=== PATIENT | female | born 2000 | race Caucasian/White ===

== ENCOUNTER 2019-05-31 21:41 | Emergency (ER) | payer BC, OTHER ==
[2019-05-31] MEDS ORDERED: Cephalexin 500 MG Cap PO ONE (22:53)
--- NOTE | 2019-05-31 22:53 | EDM.PDOC ---
ED HPI GENERAL MEDICAL PROBLEM - General Chief Complaint: Genitourinary Problem Stated Complaint: BACTERIA INFETION Time Seen by Provider: 05/31/19 22:48 Source of Information: Reports: Patient History Limitations: Reports: No Limitations - History of Present Illness INITIAL COMMENTS - FREE TEXT/NARRATIVE: This is a 18-year-old female who presents the emergency room with a chief complaint of dysuria and hematuria. Patient states she also has urgency and urgency. Denies fever chills back pain. Onset: Today Duration: Day(s):, Getting Worse Quality: Reports: Burning Severity: Mild Associated Symptoms: Reports: No Other Symptoms Vaginal Pain Score (Numeric/FACES): 10 - Related Data Allergies Allergy/AdvReac Type Severity Reaction Status Date / Time No Known Allergies Allergy Verified 05/31/19 22:01 Home Meds: Home Meds Escitalopram Oxalate [Lexapro] 10 mg PO DAILY 05/31/19 [History] Past Medical History Cardiovascular History: Reports: None Respiratory History: Reports: None Gastrointestinal History: Reports: None Genitourinary History: Reports: None [employer] History: Reports: None Musculoskeletal History: Reports: None Neurological History: Reports: None Psychiatric History: Reports: Anxiety, Depression Endocrine/Metabolic History: Reports: None Hematologic History: Reports: None Immunologic History: Reports: None Oncologic (Cancer) History: Reports: None Dermatologic History: Reports: None - Infectious Disease History Infectious Disease History: Reports: None - Past Surgical History Head Surgeries/Procedures: Reports: None HEENT Surgical History: Reports: Oral Surgery Social & Family History - Tobacco Use Smoking Status *Q: Never Smoker - Recreational Drug Use Recreational Drug Use: No ED ROS GENERAL - Review of Systems Review Of Systems: Comprehensive ROS is negative, except as noted in HPI. Constitutional: Reports: No Symptoms HEENT: Reports: No Symptoms Respiratory: Reports: No Symptoms Cardiovascular: Reports: No Symptoms Endocrine: Reports: No Symptoms GI/Abdominal: Reports: No Symptoms : Reports: Frequency, Hematuria Musculoskeletal: Reports: No Symptoms Skin: Reports: No Symptoms Neurological: Reports: No Symptoms Psychiatric: Reports: No Symptoms Hematologic/Lymphatic: Reports: No Symptoms Immunologic: Reports: No Symptoms ED EXAM, RENAL/ - Physical Exam Exam: See Below Exam Limited By: No Limitations General Appearance: Alert, WD/WN, No Apparent Distress Eye Exam: Bilateral Eye: Normal Fundi, Normal Inspection, Papilledema, PERRL Ears: Normal External Exam, Normal Canal, Hearing Grossly Normal, Normal TMs Throat/Mouth: Normal Oropharynx Head: Atraumatic, Normocephalic Course - Vital Signs Last Recorded V/S: Last Vital Signs Temp 97.9 F 05/31/19 21:58 Pulse 87 05/31/19 21:58 Resp 16 05/31/19 21:58 BP 117/63 05/31/19 21:58 Pulse Ox 97 05/31/19 21:58 - Orders/Labs/Meds Orders: Active Orders 24 hr Category Date Time Status CULTURE URINE [RM] Stat Lab 05/31/19 21:53 Received Labs: Laboratory Tests 05/31/19 Range/Units 21:53 Urine Color YELLOW Urine Appearance CLEAR Urine pH 6.0 (5.0-8.0) Ur Specific Halls >= 1.030 (1.001-1.035) Urine Protein NEGATIVE (NEGATIVE) mg/dL Urine Glucose (UA) NEGATIVE (NEGATIVE) mg/dL Urine Ketones NEGATIVE (NEGATIVE) mg/dL Urine Occult Blood MODERATE H (NEGATIVE) Urine Nitrite NEGATIVE (NEGATIVE) Urine Bilirubin NEGATIVE (NEGATIVE) Urine Urobilinogen 0.2 (<2.0) EU/dL Ur Leukocyte Esterase TRACE H (NEGATIVE) Urine RBC 5-10 (0-2/HPF) Urine WBC 1-3 (0-5/HPF) Ur Epithelial Cells RARE (NONE-FEW) Urine Bacteria RARE (NEGATIVE) Departure - Departure Time of Disposition: 22:52 Disposition: Home, Self-Care 01 Condition: Good Clinical Impression: UTI, Urinary tract infectious disease - Discharge Information Referrals: PCP,None [Primary Care Provider] - Sepsis Event Note - Evaluation Sepsis Screening Result: No Definite Risk - Focused Exam Vital Signs: Vital Signs Temp Pulse Resp BP Pulse Ox 05/31/19 21:58 97.9 F 87 16 117/63 97 Date Exam was Performed: 05/31/19 Time Exam was Performed: 22:48 - My Orders Last 24 Hours: My Active Orders 05/31/19 21:53 CULTURE URINE [RM] Stat - Assessment/Plan Last 24 Hours: My Active Orders 05/31/19 21:53 CULTURE URINE [RM] Stat
[2019-05-31] MEDS ORDERED: Phenazopyridine 200 MG Tab PO ONE (22:54)
== END 2019-05-31 23:00 | disposition home or self-care (01) ==
LOC: MW.ED 21:41
DX: N39.0 Urinary tract infection, site not specified (principal); F41.9 Anxiety disorder, unspecified; F32.9 Major depressive disorder, single episode, unspecified; Z79.899 Other long term (current) drug therapy
CPT/HCPCS: 81001; 87086; 87088; 87186; 99283; A9270

== ENCOUNTER 2019-07-14 18:40 | Emergency (ER) | payer BC, OTHER ==
--- NOTE | 2019-07-14 20:29 | CR ---
Right elbow: AP, lateral and slight oblique view of the right elbow was obtained. Comparison: No previous right elbow study. Joint spaces are preserved. No joint effusion is seen. No fracture or other bony abnormality is appreciated. Impression: 1. No abnormality is appreciated on 3 view right elbow study. Diagnostic code #1 This report was dictated in Mountain Standard Time
--- NOTE | 2019-07-14 20:41 | EDM.PDOC ---
ED HPI GENERAL MEDICAL PROBLEM - General Chief Complaint: Upper Extremity Injury/Pain Stated Complaint: FELL ON ELBOW Time Seen by Provider: 07/14/19 19:30 Source of Information: Reports: Patient History Limitations: Reports: No Limitations - History of Present Illness INITIAL COMMENTS - FREE TEXT/NARRATIVE: HISTORY AND PHYSICAL: History of present illness: Patient is a 18-year-old female presents to the ED with complaint of right elbow injury. She states that just prior to arrival to the ED, patient fell on the ice while ice skating landing directly on her her right elbow. She denies head injury or proximal shoulder pain. Denies distal numbness or tingling. Review of systems: As per history of present illness and below otherwise all systems reviewed and negative. Past medical history: As per history of present illness and as reviewed below otherwise noncontributory. Surgical history: As per history of present illness and as reviewed below otherwise noncontributory. Social history: No reported history of drug or alcohol abuse. Family history: As per history of present illness and as reviewed below otherwise noncontributory. Physical exam: General: Patient sitting comfortably in no acute distress and nontoxic appearing HEENT: Atraumatic, normocephalic, pupils reactive, negative for conjunctival pallor or scleral icterus, mucous membranes moist, throat clear, neck supple, nontender, trachea midline. No meningeal signs. Lungs: Clear to auscultation, breath sounds equal bilaterally, chest nontender. Heart: S1S2, regular, negative for clicks, rubs, or overt murmur. Abdomen: Soft, nondistended, nontender. Negative for masses or hepatosplenomegaly. Negative for costovertebral tenderness. No rigidity, rebound , guarding. Pelvis: Stable nontender. Genitourinary: Deferred. Rectal: Deferred. Extremities: No obvious swelling or deformity. Skin is intact. Pain to palpation of posterior elbow. Atraumatic, negative for cords or calf pain. Neurovascular unremarkable. Neuro: Awake, alert, oriented. Cranial nerves II through XII unremarkable. Cerebellum unremarkable. Motor and sensory unremarkable throughout. Exam nonfocal. Notes: Diagnostics: x-ray right elbow Therapeutics: Sling Prescriptions: none Impression: Right elbow injury Plan: 1. Ice, elevate, and motrin or tylenol as needed 2. Follow up with orthopedics, please call the number provided to schedule an appointment 3. Return to ED as needed as discussed Definitive disposition and diagnosis as appropriate pending reevaluation and review of above. Right Elbow Pain Score (Numeric/FACES): 9 - Related Data Allergies Allergy/AdvReac Type Severity Reaction Status Date / Time oxycodone Allergy Rash Verified 07/14/19 19:16 Home Meds: Home Meds . 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 Musculoskeletal History: Reports: None Neurological History: Reports: None Psychiatric History: Reports: Anxiety, Depression Endocrine/Metabolic History: Reports: None Hematologic History: Reports: None Immunologic History: Reports: None Oncologic (Cancer) History: Reports: None Dermatologic History: Reports: None - Infectious Disease History Infectious Disease History: Reports: None - Past Surgical History Head Surgeries/Procedures: Reports: None HEENT Surgical History: Reports: Oral Surgery Social & Family History - Family History Family Medical History: Noncontributory - Tobacco Use Smoking Status *Q: Never Smoker - Recreational Drug Use Recreational Drug Use: No Review of Systems - Review of Systems Review Of Systems: Comprehensive ROS is negative, except as noted in HPI. ED EXAM, GENERAL - Physical Exam Exam: See Below (see dictation) Course - Vital Signs Last Recorded V/S: Last Vital Signs Temp 98.9 F 07/14/19 19:17 Pulse 84 07/14/19 19:17 Resp 18 07/14/19 19:17 BP 123/79 07/14/19 19:17 Pulse Ox 97 07/14/19 19:17 Departure - Departure Time of Disposition: 20:38 Disposition: Home, Self-Care 01 Condition: Good Clinical Impression: Injury of right elbow - Discharge Information Referrals: PCP,None [Primary Care Provider] - Additional Instructions: The following information is given to patients seen in the emergency department who are being discharged to home. This information is to outline your options for follow-up care. We provide all patients seen in our emergency department with a follow-up referral. The need for follow-up, as well as the timing and circumstances, are variable depending upon the specifics of your emergency department visit. If you don't have a primary care physician on staff, we will provide you with a referral. We always advise you to contact your personal physician following an emergency department visit to inform them of the circumstance of the visit and for follow-up with them and/or the need for any referrals to a consulting specialist. The emergency department will also refer you to a specialist when appropriate. This referral assures that you have the opportunity for follow-up care with a specialist. All of these measure are taken in an effort to provide you with optimal care, which includes your follow-up. Under all circumstances we always encourage you to contact your private physician who remains a resource for coordinating your care. When calling for follow-up care, please make the office aware that this follow-up is from your recent emergency room visit. If for any reason you are refused follow-up, please contact the [facility] Emergency Department at and asked to speak to the emergency department charge nurse. [facility] [address] [place] [id number] [address] [facility] [address] [place] [address], [address] [place] [address] 1. Ice, elevate, and motrin or tylenol as needed 2. Follow up with orthopedics, please call the number provided to schedule an appointment 3. Return to ED as needed as discussed Sepsis Event Note - Evaluation Sepsis Screening Result: No Definite Risk - Focused Exam Vital Signs: Vital Signs Temp Pulse Resp BP Pulse Ox 07/14/19 19:17 98.9 F 84 18 123/79 97 Date Exam was Performed: 07/14/19 Time Exam was Performed: 20:35
== END 2019-07-14 20:56 | disposition home or self-care (01) ==
LOC: MW.ED 18:40
DX: S59.901A Unspecified injury of right elbow, initial encounter (principal); V00.211A Fall from ice-skates, initial encounter; Y93.21 Activity, ice skating
CPT/HCPCS: 73080-26-RT; 73080-RT; 99283-25

== ENCOUNTER 2021-12-01 01:34 | Emergency (ER) | payer BC, OTHER ==
[2021-12-01] MEDS ORDERED: Sodium Chloride 0.9% 10 ML Syringe FLUSH PRN (02:32)
[2021-12-01] MEDS ORDERED: Sodium Chloride 0.9% 2.5 ML Syringe FLUSH PRN (02:32)
[2021-12-01] MEDS ORDERED: Ondansetron 4 MG/2 ML SDV IVPUSH ONE (02:33)
[2021-12-01] MEDS ORDERED: fentaNYL 50 MCG/ML SDV IVPUSH ONE (02:34)
[2021-12-01 02:52] LABS: CARBON DIOXIDE,CO2 24.7 mmol/L (21.0-32.0); POTASSIUM,K 3.4 mmol/L (3.5-5.1)
[2021-12-01] MEDS ORDERED: Iopamidol 755 MG/ML 500 ML Multipack Bottle IVPUSH ONE (03:43)
[2021-12-01] MEDS ORDERED: Ketorolac 30 MG/ML SDV IVPUSH ONE (05:20)
== END 2021-12-01 06:13 | disposition home or self-care (01) ==
LOC: MW.ED 01:34
DX: N83.291 Other ovarian cyst, right side (principal); Z20.822 Contact with and (suspected) exposure to COVID-19; Z88.6 Allergy status to analgesic agent
CPT/HCPCS: 36415; 74177; 80053; 83605; 83690; 84703; 85025; 87635; 96374; 96375; 99284; J1885; J2405; J3010; J3490; Q9967; U0002

== ENCOUNTER 2023-01-20 06:33 | Day surgery (SDC) | payer BC, OTHER ==
[~2023-01-20 06:33] MED LIST: Sodium Chloride 0.9% 1,000 ML IV SCH; Sodium Chloride 0.9% 10 ML Syringe FLUSH PRN; Sodium Chloride 0.9% 2.5 ML Syringe FLUSH PRN; Sodium Chloride 0.9% 20 ML SDV IV PRN
[2023-01-20] MEDS ORDERED: Metoclopramide 10 MG/2 ML SDV IVPUSH PRN (07:00)
[2023-01-20] MEDS ORDERED: HYDROmorphone 1 MG/ML Syringe IVPUSH PRN (07:00)
[2023-01-20] MEDS ORDERED: Albuterol 0.083% 2.5 MG/3 ML Neb Soln NEB PRN (07:00)
[2023-01-20] MEDS ORDERED: fentaNYL 50 MCG/ML SDV IVPUSH PRN (07:00)
[2023-01-20] MEDS ORDERED: Naloxone 0.4 MG/ML SDV IVPUSH PRN (07:00)
[2023-01-20] MEDS ORDERED: Morphine 2 MG/ML SYRINGE IVPUSH PRN (07:00)
[2023-01-20] MEDS ORDERED: Ondansetron 4 MG/2 ML SDV IVPUSH PRN (07:00)
[2023-01-20] MEDS ORDERED: droPERidol 5 MG/2 ML SDV IVPUSH PRN (07:00)
[2023-01-20] MEDS ORDERED: propofoL 50 ML ONE ×3 (07:03→08:30)
[2023-01-20] MEDS ORDERED: Magnesium Sulfate (4.06 MEQ/ML) 5 GM/10 ML SDV ONE (07:03)
[2023-01-20] MEDS ORDERED: Morphine 10 MG/ML SDV ONE (07:03)
[2023-01-20] MEDS ORDERED: fentaNYL 100 MCG/2 ML SDV ONE ×2 (07:03→09:11)
[2023-01-20] MEDS ORDERED: Ketorolac 30 MG/ML SDV ONE (07:04)
[2023-01-20] MEDS ORDERED: Dexamethasone 4 MG/ML 5 ML MDV ONE (07:04)
[2023-01-20] MEDS ORDERED: Sugammadex Sodium 200 MG/2 ML VIAL ONE (07:04)
[2023-01-20] MEDS ORDERED: Lidocaine 2% 100 MG/5 ML Syringe ONE ×2 (07:04)
[2023-01-20] MEDS ORDERED: Dexmedetomidine 200 MCG/2 ML SDV ONE (07:04)
[2023-01-20] MEDS ORDERED: Rocuronium Bromide 50 MG/5 ML Syringe ONE (07:04)
[2023-01-20] MEDS ORDERED: Bupivacaine 0.25% 30 ML SDV ONE (07:04)
[2023-01-20] MEDS ORDERED: Lactated Ringers 1,000 ML IV SCH (07:15)
[2023-01-20] MEDS ORDERED: Bupivacaine 0.5% 30 ML SDV ONE (07:23)
[2023-01-20] MEDS ORDERED: ceFAZolin 2 GM in Sodium Chloride 0.9% 50 ML IV SCH (08:00)
[2023-01-20] MEDS ORDERED: ceFAZolin 2 GM Vial ONE (08:01)
[2023-01-20] MEDS ORDERED: Acetaminophen/HYDROcodone 325-5 MG Tab PO ONE (10:21)
[2023-01-20] MEDS ORDERED: traMADol 50 MG Tab PO ONE (10:30)
== END 2023-01-20 11:30 | disposition home or self-care (01) ==
LOC: MW.SDS 06:33
PROVIDERS: ATTEND Surgery
DX: K81.1 Chronic cholecystitis (principal); K82.8 Other specified diseases of gallbladder; K76.0 Fatty (change of) liver, not elsewhere classified; F41.9 Anxiety disorder, unspecified; J45.909 Unspecified asthma, uncomplicated; Z88.5 Allergy status to narcotic agent; Z79.899 Other long term (current) drug therapy
CPT/HCPCS: 47562; 64488; 81025; A9270; J0131; J0690; J1100; J1885; J2270; J2704; J3010; J3475; J3490; J7030; J7120; 00790